=== PATIENT | male | born 2000 | race Caucasian/White ===

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

== ENCOUNTER 2022-05-21 01:46 | Emergency (ER) | payer MEDICAID ==
[~2022-05-21] VITALS: Ht 185.4 cm; Wt 94.8 kg
[~2022-05-21 01:46] MED LIST changes: +DOXY-469 PO
[2022-05-21 01:58] VITALS: BP 124/72
--- NOTE | 2022-05-21 02:11 | NUR ---
DR MILIAN EXAMINING PT
--- NOTE | 2022-05-21 02:15 | NUR ---
PT PROVIDED WITH DISCHARGE INSTRUCTIONS BY DR. MILIAN.
== END 2022-05-21 02:15 | disposition home or self-care (01) ==
LOC: MED 01:46
DX: R07.89 Other chest pain (principal)
CPT/HCPCS: 93005; 99283

== ENCOUNTER 2022-06-06 18:43 | Emergency (ER) | payer MEDICAID ==
[~2022-06-06] VITALS: Ht 181.6 cm; Wt 95.7 kg
[2022-06-06 18:56] VITALS: BP 117/72
[2022-06-06] MEDS ORDERED: OMEP40EC23 PO ×2 (19:18→19:35)
[2022-06-06] MEDS ORDERED: ALUMINUM HYD/MAG/SIMETHICONE 30 ML UDC ONE (19:20)
[2022-06-06] MEDS ORDERED: DICYCLOMINE HCL LIQUID 10 MG/5 ML UDC ONE (19:21)
[2022-06-06] MEDS: DICYCLOMINE HCL LIQUID 20 MG, ALUMINUM HYD/MAG/SIMETHICONE 30 ML, LIDOCAINE VISCOUS 2% ... PO ONE ×3 (19:23)
== END 2022-06-06 19:30 | disposition home or self-care (01) ==
LOC: MED 19:17
DX: K21.9 Gastro-esophageal reflux disease without esophagitis (principal); Z79.899 Other long term (current) drug therapy; Z79.1 Long term (current) use of non-steroidal anti-inflammatories (NSAID); Z79.2 Long term (current) use of antibiotics
CPT/HCPCS: 99283

== ENCOUNTER 2022-07-01 21:51 | Emergency (ER) | payer MEDICAID ==
[~2022-07-01] VITALS: Ht 182.9 cm; Wt 93.9 kg
[~2022-07-01 21:51] MED LIST changes: +OMEP40EC23 PO
[2022-07-01 21:55] VITALS: BP 122/68
--- NOTE | 2022-07-01 22:02 | NUR ---
TO LOBBY FOLLOWING TRIAGE
--- NOTE | 2022-07-02 02:05 | NUR ---
PT CALLED IN LOBBY AND OUTSIDE WITH NO ANSWER x3. PT LWBS
== END 2022-07-02 02:05 | disposition left against medical advice (07) ==
LOC: MED 21:51
DX: R53.1 Weakness (principal); Z53.21 Procedure and treatment not carried out due to patient leaving prior to being seen by health care provider

== ENCOUNTER 2022-08-08 16:22 | Emergency (ER) | payer MEDICAID ==
[~2022-08-08] VITALS: Ht 185.4 cm; Wt 74.8 kg
[2022-08-08 16:41] VITALS: BP 125/74
--- NOTE | 2022-08-08 17:03 | NUR ---
PATIENT LEFT WITHOUT BEING SEEN BY DR. ROGER. NO FURTHER CARE PROVIDED FOR PATIENT.
--- NOTE | 2022-08-08 17:03 | NUR ---
LAB CALLED PT IN [facility] FOR BLOOD DRAW N/A
--- NOTE | 2022-08-08 17:29 | NUR ---
lab called pt outside and in lobby for lab draw, no answer at this time
--- NOTE | 2022-08-08 17:34 | NUR ---
GRACIELA SANCHEZ PT IN [facility] N/A
== END 2022-08-08 17:34 | disposition left against medical advice (07) ==
LOC: MED 16:22
DX: R07.9 Chest pain, unspecified (principal); Z53.21 Procedure and treatment not carried out due to patient leaving prior to being seen by health care provider
CPT/HCPCS: 93005